=== PATIENT | female | born 2000 | race Caucasian/White ===

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

== ENCOUNTER 2018-06-24 23:02 | Emergency (ER) | payer BC ==
[2018-06-24 23:09] VITALS: BP 128/86
--- NOTE | 2018-06-24 23:12 | EDPHY ---
H & P Stated Complaint: Sore throat and fever x few days. Took advil 30 mins RECRUITER Time Seen by Provider: 06/24/18 23:12 HPI/ROS: HPI CHIEF COMPLAINT: Sore throat x2 days. HISTORY OF PRESENT ILLNESS: 17-year-old female, presents emergency room with sore throat x2 days. Progressively getting worse. Chills but no fever. No vomiting. No shortness of breath no chest pain no cough. Denies any change in phonation. Past Medical History: Denies significant medical history except for narcolepsy and migraines. Past Surgical History: Denies recent surgery Social History: Denies drugs alcohol tobacco. Family History: Noncontributory ROS REVIEW OF SYSTEMS: 10 Systems were reviewed and negative with the exception of the elements mentioned in the history of present illness. Exam Constitutional triage nursing summary reviewed, vital signs reviewed, awake/ alert. Eyes normal conjunctivae and sclera, EOMI, PERRLA. HENT posterior pharynx bilateral tonsillar bed is equal and symmetrical, 2+, erythema with some mild exudate, uvula midline, no signs of RECRUITER RPA. normal inspection, atraumatic, moist mucus membranes, no epistaxis, neck supple/ no meningismus, no raccoon eyes. Respiratory clear to auscultation bilaterally, normal breath sounds, no respiratory distress, no wheezing. Cardiovascular rate normal, regular rhythm, no murmur, no edema, distal pulses normal. Gastrointestinal soft, non-tender, no rebound, no guarding, normal bowel sounds, no distension, no pulsatile mass. Genitourinary no CVA tenderness. Musculoskeletal no midline vertebral tenderness, full range of motion, no calf swelling, no tenderness of extremities, no meningismus, good pulses, neurovascularly intact. Skin pink, warm, & dry, no rash, skin atraumatic. Neurologic awake, alert and oriented x 3, AAOx3, moves all 4 extremities equally, motor intact, sensory intact, CN II-XII intact, normal cerebellar, normal vision, normal speech. Psychiatric normal mood/affect. Heme/Lymph/Immune no lymphadenopathy. Differential Diagnosis: Includes but is not limited to in a particular order viral pharyngitis, strep pharyngitis, bacterial pharyngitis, mono Medical Decision Making: Plan for this patient given the erythema and exudate and mild swelling there is no evidence of RPA or RECRUITER on exam however will start on azithromycin antibiotic treatment. Decadron for swelling. Recommend alternating Tylenol Motrin. Cold fluids. And return if worse. Re-evaluation: Source: Patient - Personal History LMP (Females 10-55): 22-28 Days Ago Current Tetanus Diphtheria and Acellular Pertussis (TDAP): Yes - Medical/Surgical History Hx Asthma: No Hx Chronic Respiratory Disease: No Hx Diabetes: No Hx Cardiac Disease: No Hx Renal Disease: No Hx Cirrhosis: No Hx Alcoholism: No Hx HIV/AIDS: No Hx Splenectomy or Spleen Trauma: No Other PMH: anxeity, borderline narcolepsy, chronic migraines - Social History Smoking Status: Never smoked Constitutional: Initial Vital Signs Temperature (C) 36.4 C 06/24/18 23:06 Heart Rate 78 06/24/18 23:06 Respiratory Rate 16 06/24/18 23:06 Blood Pressure 128/86 H 06/24/18 23:06 O2 Sat (%) 97 06/24/18 23:06 O2 Delivery Mode Room Air Allergies/Adverse Reactions: No Known Allergies Allergy (Unverified 06/06/17 01:06) Home Medications: Medication Instructions Recorded Prozac 10 MG (*) 06/06/17 Wellbutrin 100mg SR (*) 06/06/17 Azithromycin [Zithromax] 250 mg PO DAILY #6 tab 06/24/18 Dexamethasone [Decadron 4 MG (*)] 4 mg PO DAILY #4 tab 06/24/18 FOCALIN 06/24/18 Ibuprofen [Motrin (*)] 800 mg PO Q6-8PRN #10 tab 06/24/18 Medical Decision Making - Data Points Laboratory Results: 06/24/18 23:18 Group A Strep Screen Pending Departure - Departure Disposition: Home, Routine, Self-Care Clinical Impression: Pharyngitis Qualifiers: Pharyngitis/tonsillitis etiology: unspecified etiology Qualified Code(s): J02.9 - Acute pharyngitis, unspecified Condition: Good Instructions: Pharyngitis (ED) Additional Instructions: 1. Drink lots of fluids stay well-hydrated 2. Alternate Tylenol Motrin every 6-8 hours. 3. Antibiotics as prescribed. 4. Return if worse. Referrals: ARTUR AJ [Other] - As per Instructions Prescriptions: Azithromycin [Zithromax] 250 mg PO DAILY #6 tab Dexamethasone [Decadron 4 MG (*)] 4 mg PO DAILY #4 tab Ibuprofen [Motrin (*)] 800 mg PO Q6-8PRN #10 tab
[2018-06-24] MEDS ORDERED: DEXAMETHASONE 4 MG TAB PO ONE (23:21)
[2018-06-24] MEDS ORDERED: AZITHROMYCIN 250 MG TAB PO ONE (23:21)
== END 2018-06-24 23:46 | disposition home or self-care (01) ==
DX: J02.9 Acute pharyngitis, unspecified (principal)